=== PATIENT | female | born 1955 | race African-American/Black ===

== ENCOUNTER → 2016-11-02 | Outpatient (CLI) | payer MEDICARE, MEDICAID ==
--- NOTE | 2016-11-02 16:06 | WOMENS IMAGING REPORT ---
EXAM DESCRIPTION: BILAT SCREENING MAMMO W/CAD COMPLETED DATE/TIME: 11/02/2016 10:20 am REASON FOR STUDY: Z12.31, ROUTINE SCREENING MAMMO Z12.31 ENCNTR SCREEN MAMMOGRAM FOR MALIGNANT NEOP LASM OF [place] COMPARISON: 2009 to 2011 TECHNIQUE: Standard craniocaudal and mediolateral oblique views of each breast recorded using digita l acquisition. LIMITATIONS: None. FINDINGS: No masses, calcifications or architectural distortion. No areas of suspicion. Read with the assistance of CAD. .[facility] - R2 Cenova Version 1.3 .[facility] Imaging - R2 Cenova Version 1.3 .[facility] - R2 Cenova Version 2.4 .[facility] - R2 Cenova Version 2.4 .[facility] - R2 Wet Suit Gluer Version 9.2 BREAST DENSITY: c. The breasts are heterogeneously dense, which may obscure small masses. BIRAD: 1 NEGATIVE RECOMMENDATION: ROUTINE SCREENING COMMENT: PATIENT NOTIFIED BY LETTER. The [employer] recommends an annual screening mammogram for women aged 40 years or over. Each patient will receive a reminder prior to the anniversary date of her mammogram. The [employer] (ACR) has developed recommendations for screening MRI of the breast s in certain patient populations, to be used in conjunction with mammography. Breast MRI surveillanc e may be appropriate for women with more than 20% lifetime risk of developing breast cancer as deter mined by genetic testing, significant family history of the disease, or history of mantle radiation f or Hodgkins Disease. ACR Practice Guidelines 2008. TECHNICAL DOCUMENTATION: FINDING NUMBER: (1) ASSESSMENT: (1) JOB ID: [id number] [employer]- All Rights Reserved
== END ==
LOC: WI 09:54
PROVIDERS: ATTEND Family Medicine
DX: Z12.31 Encounter for screening mammogram for malignant neoplasm of breast (principal)
CPT/HCPCS: 77067; G0202

== ENCOUNTER → 2018-01-02 | Outpatient (CLI) | payer MEDICARE, MEDICAID ==
--- NOTE | 2018-01-02 17:43 | WOMENS IMAGING REPORT ---
EXAM DESCRIPTION: 3D SCREENING MAMMO BILAT COMPLETED DATE/TIME: 01/02/2018 11:59 am REASON FOR STUDY: SCREENING MAMMO Z12.31 ENCNTR SCREEN MAMMOGRAM FOR MALIGNANT NEOPLASM OF [place] COMPARISON: Multiple since 2009 TECHNIQUE: Standard craniocaudal and mediolateral oblique views of each breast recorded using digita l acquisition and breast tomosynthesis. LIMITATIONS: None. FINDINGS: No masses, calcifications or architectural distortion. No areas of suspicion. Read with the assistance of CAD. .[facility] - R2 Cenova Version 1.3 .[facility] - R2 Cenova Version 1.3 .[facility] - R2 Cenova Version 2.4 .[facility] - R2 Cenova Version 2.4 [facility] R2 Dealer Sales Manager Version 9.2 IMPRESSION: NORMAL MAMMOGRAM. BIRADS 1. BREAST DENSITY: c. The breasts are heterogeneously dense, which may obscure small masses. BIRAD: 1 NEGATIVE RECOMMENDATION: ROUTINE SCREENING Please continue yearly bilateral screening tomosynthesis in December 2018 given heterogeneously dense ti ssue COMMENT: The patient has been notified of the results by letter per [place] requirements. Additional no tification policies are in place for contacting patient with suspicious or incomplete findings. Quality ID #[id number]: The [employer] recommends an annual screening mammogram for women aged 40 years or over. This facility utilizes a reminder system to ensure that all patients receive reminder letters, and/or direct phone calls for appointments. This includes reminders for routine scr eening mammograms, diagnostic mammograms, or other Breast Imaging Interventions when appropriate. Th is patient will be placed in the appropriate reminder system. The [employer] (ACR) has developed recommendations for screening MRI of the breast s in certain patient populations, to be used in conjunction with mammography. Breast MRI surveillanc e may be appropriate for women with more than 20% lifetime risk of developing breast cancer as deter mined by genetic testing, significant family history of the disease, or history of mantle radiation f or Hodgkins Disease. ACR Practice Guidelines 2008. DBT Technology DBT is a type of tomographic mammography. With conventional mammography, overlapping breast tissue ma y make lesions difficult to detect, even with good compression. DBT uses an x-ray tube that rotates a round the breast, taking images at different angles. These images are then combined to create thin sl ices of the breast that the radiologist can view as a 3D reconstruction. The IgnitionOne unit can perform full-field digital mammograms (2D imaging); or DBT (3D imaging); or both, in a combination mode that quickly performs both the mammogram and the tomosynthesis scan while the breast is still compressed. PQRS 6045F: Fluoroscopic imaging is not utilized for breast tomosynthesis. TECHNICAL DOCUMENTATION: FINDING NUMBER: (1) ASSESSMENT: (1) JOB ID: [id number] [employer]- All Rights Reserved Reading location - IP/workstation name: [facility]
== END ==
LOC: WI 11:38
PROVIDERS: ATTEND Family Medicine
DX: Z12.31 Encounter for screening mammogram for malignant neoplasm of breast (principal)
CPT/HCPCS: 77063; 77067

== ENCOUNTER 2019-04-27 16:08 | Emergency (ER) | payer MEDICARE, MEDICAID ==
[2019-04-27 16:15] VITALS: BP 127/82
--- NOTE | 2019-04-27 16:40 | ER Document Report ---
ED Medical Screen (RME) - General Chief Complaint: Psych Problem Stated Complaint: PSYCH PROBLEM Time Seen by Provider: 04/27/19 16:25 Primary Care Provider: HARDIK VAZQUEZ MD [Primary Care Provider] - Follow up as needed Notes: Patient is a 63-year-old female who presents to the emergency department with a chief complaint of difficulty swallowing and hallucinations. Her sisters are at bedside to provide additional history. The patient had some recent changes in her medications. Patient was taking Thorazine and was switched over to Prolixin. Her doctor then also added Cogentin yesterday. According to her sisters, the patient has had some difficulty swallowing since she had her thyroid medication decreased. Sisters also state that the patient threw her dentures away and is taking frequent baths, which is not her normal. Exam: Anxious. I have greeted and performed a rapid initial assessment of this patient. A comprehensive ED assessment and evaluation of the patient, analysis of test results and completion of medical decision making process will be conducted by an additional ED providers. TRAVEL OUTSIDE OF THE [place] IN LAST 30 DAYS: No - Related Data Allergies/Adverse Reactions: No Known Allergies Allergy (Verified 04/27/19 16:09) Past Medical History - Social History Frequency of alcohol use: None Drug Abuse: None - Past Medical History Cardiac Medical History: Denies: Hx Coronary Artery Disease, Hx Heart Attack, Hx Hypertension Pulmonary Medical History: Denies: Hx Asthma, Hx Bronchitis, Hx COPD, Hx Pneumonia Neurological Medical History: Reports: Hx Seizures - as a child . Denies: Hx Cerebrovascular Accident Renal/ Medical History: Denies: Hx Peritoneal Dialysis Musculoskeltal Medical History: Reports Hx Arthritis Past Surgical History: Reports: Hx Hysterectomy, Hx Thyroid Surgery. Denies: Hx Pacemaker - Immunizations Hx Diphtheria, Pertussis, Tetanus Vaccination: Yes Physical Exam - Vital signs Vitals: Temp Pulse Resp BP Pulse Ox 97.9 F 102 H 20 127/82 H 96 04/27/19 16:14 04/27/19 16:14 04/27/19 16:14 04/27/19 16:14 04/27/19 16:14 Course - Vital Signs Vital signs: Temp Pulse Resp BP Pulse Ox 97.9 F 102 H 20 127/82 H 96 04/27/19 16:14 04/27/19 16:14 04/27/19 16:14 04/27/19 16:14 04/27/19 16:14 Doctor's Discharge - Discharge Referrals: HARDIK VAZQUEZ MD [Primary Care Provider] - Follow up as needed
[2019-04-27 17:17] LABS: ABSOLUTE LYMPHOCYTES (AUTO) 1.9 10^3/uL (0.5-4.7); ABSOLUTE MONOCYTES (AUTO) 0.5 10^3/uL (0.1-1.4); ABSOLUTE NEUT (AUTO) 3.8 10^3/uL (1.7-8.2); BASOPHILS % (AUTO) 0.5 % (0-2); EOSINOPHILS % (AUTO) 0.1 % (0-6); HEMATOCRIT 37.6 % (36.0-47.0); HEMOGLOBIN 12.6 g/dL (12.0-15.5); LYMPHOCYTES % (AUTO) 29.9 % (13-45); MEAN CORPUSCULAR HEMOGLOBIN 28.7 pg (27.0-33.4); MEAN CORPUSCULAR HGB CONC 33.5 g/dL (32.0-36.0); MEAN CORPUSCULAR VOLUME 86 fl (80-97); MONOCYTES % (AUTO) 8.4 % (3-13); PLATELET COUNT 203 10^3/uL (150-450); RED BLOOD COUNT 4.39 10^6/uL (3.72-5.28); RED CELL DISTRIBUTION WIDTH 14.6 % (11.5-14.0); SEGMENTED NEUTROPHILS % (AUTO) 61.1 % (42-78); TOTAL CELLS COUNTED % (AUTO) 100 %; WHITE BLOOD COUNT 6.2 10^3/uL (4.0-10.5)
[2019-04-27 17:20] LABS: APPEARANCE,URINE SLIGHTLY-CLOUDY; BILIRUBIN,URINE NEGATIVE (NEGATIVE); GLUCOSE, URINE NEGATIVE (NEGATIVE); KETONES,URINE TRACE mg/dL (NEGATIVE); LEUKOCYTE ESTERASE,URINE LARGE (NEGATIVE); NITRITE,URINE NEGATIVE (NEGATIVE); PROTEIN,URINE 30 mg/dL (NEGATIVE); URINE SPECIFIC GRAVITY 1.025
[2019-04-27 17:21] LABS: COLOR,URINE DARK YELLOW
[2019-04-27 17:33] LABS: URINE AMPHETAMINES SCREEN NEGATIVE; URINE BARBITURATES SCREEN NEGATIVE; URINE BENZODIAZEPINES SCREEN NEGATIVE; URINE COCAINE SCREEN NEGATIVE; URINE MARIJUANA (THC) SCREEN NEGATIVE; URINE METHADONE SCREEN NEGATIVE; URINE PHENCYCLIDINE SCREEN NEGATIVE
[2019-04-27 17:36] LABS: ACETAMINOPHEN < 10 ug/mL (10-30); ALANINE AMINOTRANSFERASE 36 U/L (9-52); ALBUMIN 4.7 g/dL (3.5-5.0); ALCOHOL < 10 mg/dL (NONE DETECTED); ALKALINE PHOSPHATASE 72 U/L (38-126); ANION GAP 10 (5-19); ASPARTATE AMINO TRANSFERASE 47 U/L (14-36); BILIRUBIN,DIRECT 0.3 mg/dL (0.0-0.4); BILIRUBIN,TOTAL 0.7 mg/dL (0.2-1.3); BLOOD UREA NITROGEN 23 mg/dL (7-20); CALCIUM 10.4 mg/dL (8.4-10.2); CARBON DIOXIDE 30 mmol/L (22-30); CHLORIDE 106 mmol/L (98-107); GLUCOSE 113 mg/dL (75-110); POTASSIUM 4.1 mmol/L (3.6-5.0); SALICYLATE < 1.0 mg/dL (2.0-20.0); TOTAL PROTEIN 8.1 g/dL (6.3-8.2)
--- NOTE | 2019-04-27 17:37 | ER Document Report ---
ED General - General Chief Complaint: Psych Problem Stated Complaint: PSYCH PROBLEM Time Seen by Provider: 04/27/19 16:25 Primary Care Provider: HARDIK VAZQUEZ MD [Primary Care Provider] - Follow up as needed Information source: Patient Notes: HPI: Patient is a very pleasant 63-year-old female with past medical history of schizophrenia. Supposedly according to the patient's family, the Thorazine that patient was taking when off label April 08. She was switched to fluphenazine by her psychiatrist. She was taking 5 mg a day. Given that the patient's symptoms started to recur such as excessive bathing, the patient was seen by her psychiatrist yesterday and they increased the fluphenazine from 5 mg daily to 10 mg twice a day and started the patient also on benztropine. Yesterday was the first dose of this new medication change. Patient also had her levothyroxine change from 85 mcg to 75 mcg in November. Patient and family deny any headache, chest pain, abdominal pain, vomiting, diarrhea, weakness or numbness. No complaints of pain. There was a complaint in triage of some difficulty swallowing. However the patient has been eating food and drinking liquid without difficulty. ROS: See HPI All other review of systems reviewed and otherwise negative Reviewed vital signs and nursing note as charted by RN. PHYSICAL EXAM: CONSTITUTIONAL: Alert and very polite and does follow commands. She does not appear to be in any acute distress HEAD: Normocephalic; atraumatic EYES: PERRL; no nystagmus, sclerae non-icteric ENT: Normal nose; no rhinorrhea; moist mucous membranes; pharynx without lesions noted NECK: Supple without meningismus; non-tender; no cervical lymphadenopathy, no masses CARD: Regular rate and rhythm; no murmurs; symmetric distal pulses RESP: Normal chest excursion without splinting or tachypnea; breath sounds clear and equal bilaterally; no wheezes, no rhonchi, no rales ABD/GI: Normal bowel sounds; non-distended; soft, non-tender; no palpable organomegaly or masses BACK: The back appears normal and is non-tender to palpation EXT: Normal ROM in all joints; non-tender to palpation; no edema SKIN: No acute lesions noted NEURO: CN 2-12 intact; 5/5 bilateral upper and lower extremity strength with sensation intact to light touch PSYCH: The patient's mood and manner are appropriate. Grooming and personal hygiene are appropriate. TRAVEL OUTSIDE OF THE [place] IN LAST 30 DAYS: No - Related Data Allergies/Adverse Reactions: No Known Allergies Allergy (Verified 04/27/19 16:09) Past Medical History - Social History Smoking Status: Never Smoker Frequency of alcohol use: None Drug Abuse: None Family History: Reviewed & Not Pertinent Patient has suicidal ideation: No Patient has homicidal ideation: No - Past Medical History Cardiac Medical History: Denies: Hx Coronary Artery Disease, Hx Heart Attack, Hx Hypertension Pulmonary Medical History: Denies: Hx Asthma, Hx Bronchitis, Hx COPD, Hx Pneumonia Neurological Medical History: Reports: Hx Seizures - as a child . Denies: Hx C erebrovascular Accident Renal/ Medical History: Denies: Hx Peritoneal Dialysis Musculoskeletal Medical History: Reports Hx Arthritis Past Surgical History: Reports: Hx Hysterectomy, Hx Thyroid Surgery. Denies: Hx Pacemaker - Immunizations Hx Diphtheria, Pertussis, Tetanus Vaccination: Yes Hx Pneumococcal Vaccination: 03/02/11 Physical Exam - Vital signs Vitals: Temp Pulse Resp BP Pulse Ox 97.9 F 102 H 20 127/82 H 96 04/27/19 16:14 04/27/19 16:14 04/27/19 16:14 04/27/19 16:14 04/27/19 16:14 Course - Re-evaluation Re-evalutation: 04/27/19 17:35 Given the above history and physical examination, we will check basic labs as well as a TSH level. I do not feel any thyromegaly and do not see any posterior erythema or uvula thickening or deviation. Neck is soft and supple. Patient has been afebrile. Given the patient's psychiatric symptoms not improving, with the change in medications just initiated yesterday, I do believe that the patient may not have had enough time for these medications to take effect. Patient does not appear to be a harm to herself or others. Family is very caring and personally takes care of the patient. Given this information above, I believe that the labs are unremarkable, and the patient is able to eat and drink, I believe the patient can be discharged home with strict return precautions and follow-up with a psychiatrist. Family is very caring and understands these instructions. I would like to give the medications 3 or 4 more days before we determine that they have been insufficient in helping the patient's symptomatology. EKG shows a heart rate of 74, no obvious ST elevation or depression. Extensive artifact given the patient's baseline tremor. 04/27/19 17:45 Labs thus far as recorded. Urine analysis as recorded. Urine culture has been sent. They deny the patient having any dysuria, fevers, vomiting, or diarrhea. Given the above history and physical examination, if the TSH is normal, patient will be discharged home with strict return precautions and follow-up with the primary care physician and psychiatrist. Family is very comfortable with this plan. - Vital Signs Vital signs: Temp Pulse Resp BP Pulse Ox 97.9 F 102 H 20 127/82 H 96 04/27/19 16:14 04/27/19 16:14 04/27/19 16:14 04/27/19 16:14 04/27/19 16:14 - Laboratory Result Diagrams: 04/27/19 16:51 04/27/19 16:51 Laboratory results interpreted by me: 04/27/19 04/27/19 04/27/19 16:51 16:51 16:51 RDW 14.6 H Sodium 146.2 H BUN 23 H Est GFR (Non-Af Amer) 55 L Glucose 113 H Calcium 10.4 H AST 47 H Urine Protein 30 H Urine Ketones TRACE H Urine Blood SMALL H Urine Urobilinogen 2.0 H Ur Leukocyte Esterase LARGE H Salicylates < 1.0 L Acetaminophen < 10 L Discharge - Discharge Clinical Impression: Agitation, New medication added Condition: Fair Disposition: HOME, SELF-CARE Additional Instructions: Come back immediately for any increased agitation, fevers or vomiting, worsening change in mentation, pain to any location, or any other acute problems. Please make sure that you follow-up with your psychiatrist for reassessment as discussed. Referrals: HARDIK VAZQUEZ MD [Primary Care Provider] - Follow up as needed
--- NOTE | 2019-04-27 23:16 | EKG REPORT ---
SEVERITY:- ABNORMAL ECG - SINUS TACHYCARDIA : Confirmed by: Sunitha Durham 27-Apr-2019 23:15:40
== END 2019-04-27 18:18 | disposition home or self-care (01) ==
LOC: ER 16:08
DX: R45.1 Restlessness and agitation (principal); F20.9 Schizophrenia, unspecified; Z79.899 Other long term (current) drug therapy
CPT/HCPCS: 36415; 80053; 80307; 81001; 84443; 85025; 87086; 87088; 87186; 93005; 93010; 99284

== ENCOUNTER 2019-05-19 01:35 | Emergency (ER) | payer MEDICARE, MEDICAID ==
[2019-05-19] MEDS ORDERED: BENZTROPINE MESYLATE 1 MG TABLET PO ONE (02:33)
[2019-05-19] MEDS ORDERED: HALOPERIDOL LACTATE INJ 5 MG/1 ML VIAL IM ONE ×3 (02:33→07:21)
[2019-05-19 02:54] LABS: ALBUMIN 4.5 g/dL (3.5-5.0); ALKALINE PHOSPHATASE 70 U/L (38-126); ANION GAP 9 (5-19); ASPARTATE AMINO TRANSFERASE 36 U/L (14-36); BILIRUBIN,DIRECT 0.3 mg/dL (0.0-0.4); BILIRUBIN,TOTAL 0.7 mg/dL (0.2-1.3); BLOOD UREA NITROGEN 24 mg/dL (7-20); CALCIUM 10.1 mg/dL (8.4-10.2); CARBON DIOXIDE 26 mmol/L (22-30); CHLORIDE 108 mmol/L (98-107); GLUCOSE 113 mg/dL (75-110); POTASSIUM 3.9 mmol/L (3.6-5.0); TOTAL PROTEIN 7.6 g/dL (6.3-8.2)
[2019-05-19 02:57] LABS: ACETAMINOPHEN < 10 ug/mL (10-30); ALCOHOL < 10 mg/dL (NONE DETECTED); SALICYLATE < 1.0 mg/dL (2.0-20.0)
[2019-05-19 03:01] LABS: ABSOLUTE LYMPHOCYTES (AUTO) 1.3 10^3/uL (0.5-4.7); ABSOLUTE MONOCYTES (AUTO) 0.5 10^3/uL (0.1-1.4); EOSINOPHILS % (AUTO) 0.1 % (0-6); RED CELL DISTRIBUTION WIDTH 14.1 % (11.5-14.0); TOTAL CELLS COUNTED % (AUTO) 100 %
--- NOTE | 2019-05-19 03:10 | ER Document Report ---
ED General - General Mode of Arrival: Medic Information source: Relative, Emergency Med Personnel TRAVEL OUTSIDE OF THE [place] IN LAST 30 DAYS: No - HPI Onset: Other Onset/Duration: Persistent, Worse Quality of pain: No pain Associated symptoms: None Exacerbated by: Denies Relieved by: Denies Similar symptoms previously: Yes Recently seen / treated by doctor: No <YAZ NUÑEZ - Last Filed: 05/19/19 08:12> <MERVIN MADRID - Last Filed: 05/19/19 08:30> <GRACIE FLOWERS - Last Filed: 05/20/19 11:43> - General Chief Complaint: Facial Injury Stated Complaint: PSYCH Time Seen by Provider: 05/19/19 01:40 Primary Care Provider: Nilda Fontenot [Outside] - Follow up in 3-5 days [facility] [Outside] - Follow up as needed HARDIK VAZQUEZ MD [Primary Care Provider] - Follow up as needed Notes: This 63-year-old female presents emergency department post fall. Patient has h istory of MR schizophrenia. Her family reports recently patient was prescribed thioridazine but in March they were no longer able to obtain it from the pharmacy. She was then switched to fluphenazine by her provider. Since that time patient has been more agitated. She is constantly asking to have a bath. Reports she feels dirty. The family did contact her mental health provider who adjusted the dosage and she is currently taking fluphenazine milligrams in the morning 10 mg at night. Patient received some type of antibiotic at the end of April for UTI and had a relapse. Sister reports patient again started becoming very agitated wanting to take a bath hanging onto people. She reports the symptoms are increasing. (YAZ NUÑEZ) - Related Data Allergies/Adverse Reactions: No Known Allergies Allergy (Verified 04/27/19 16:09) Past Medical History - General Information source: Relative Cannot obtain history due to: Altered mental status - MR - Social History Smoking Status: Never Smoker Chew tobacco use (# tins/day): No Frequency of alcohol use: None Drug Abuse: None Lives with: Family Family History: Reviewed & Not Pertinent Patient has suicidal ideation: No Patient has homicidal ideation: No - Past Medical History Cardiac Medical History: Denies: Hx Coronary Artery Disease, Hx Heart Attack, Hx Hypertension Pulmonary Medical History: Denies: Hx Asthma, Hx Bronchitis, Hx COPD, Hx Pneumonia Neurological Medical History: Reports: Hx Seizures - as a child . Denies: Hx Cerebrovascular Accident Renal/ Medical History: Denies: Hx Peritoneal Dialysis Musculoskeletal Medical History: Reports Hx Arthritis Psychiatric Medical History: Reports: Hx Schizophrenia Past Surgical History: Reports: Hx Hysterectomy, Hx Thyroid Surgery. Denies: Hx Pacemaker - Immunizations Hx Diphtheria, Pertussis, Tetanus Vaccination: Yes Hx Pneumococcal Vaccination: 03/02/11 <YAZ NUÑEZ - Last Filed: 05/19/19 08:12> Review of Systems <YAZ NUÑEZ - Last Filed: 05/19/19 08:12> - Review of Systems Notes: Review HPI for review of systems., All other systems negative (YAZ NUÑEZ) Physical Exam <YAZ NUÑEZ - Last Filed: 05/19/19 08:12> - Vital signs Vitals: Temp Pulse BP Pulse Ox 98.2 F 104 H 150/78 H 98 05/19/19 01:40 05/19/19 01:40 05/19/19 01:40 05/19/19 01:40 - Notes Notes: PHYSICAL EXAMINATION: GENERAL: alert, nontoxic looking HEAD: Atraumatic, normocephalic. small abrasion to left side forehead EYES: Pupils equal round , extraocular movements intact, sclera anicteric, conjunctiva are normal. ENT: nares patent, Moist mucous membranes. NECK: Normal range of motion, supple without lymphadenopathy LUNGS: CTAB and equal. No wheezes rales or rhonchi. HEART: Regular rate and rhythm without murmurs ABDOMEN: Soft, no tenderness. No guarding, no rebound EXTREMITIES: Normal range of motion, no pitting edema. No cyanosis. NEUROLOGICAL: Cranial nerves grossly intact. Normal sensory/motor exams. PSYCH: Normal mood, normal affect. SKIN: Warm, Dry, normal turgor, no rashes or lesions noted, multiple healing wounds to knee bilaterally (YAZ NUÑEZ) Course - Laboratory Result Diagrams: 05/19/19 01:58 05/19/19 01:58 <YAZ NUÑEZ - Last Filed: 05/19/19 08:12> - Laboratory Result Diagrams: 05/19/19 01:58 05/19/19 01:58 <MERVIN MADRID - Last Filed: 05/19/19 08:30> - Laboratory Result Diagrams: 05/19/19 01:58 05/19/19 01:58 <GRACIE FLOWERS M - Last Filed: 05/20/19 11:43> - Re-evaluation Re-evalutation: 05/19/19 03:12 63-year-old female presents emergency department via EMS for fall and altered mental status. Sisters report patient has been more agitated grabbing them demanding to have a bath even though she just received a bath since her me dications were changed back in March. Sisters report that the pharmacy had a shortage of thioridazine so her provider switched her to fluphenazine 10 mg p.o. twice daily. She reports that she seemed to be getting better but after receiving an antibiotic for a UTI the patient is more agitated demanding a bath grabbing people. Dictation of this chart was performed using voice recognition software; therefore, there may be some unintended grammatical errors. 05/19/19 05:53 Patient is finally resting after a total of 10 mg of Haldol IM and Cogentin 1 mg p.o. Labs unremarkable. Plan for evaluation by mental health in AM. 05/19/19 07:22 Patient agitated has quit saying that she needs a bath but is still ambulating walking around. Nurse reports she is only slept maybe 5 minutes tonight. Si ster at her side waiting for behavioral health. 05/19/19 08:12 flavio from behavioral health in with patient. report given to mervin MACIEL (YAZ NUÑEZ) 05/19/19 08:30 Psych will be keeping pt. Will add thyroid panel. Med rec's given and will discuss and transfer care to our ED provider at 9am as Psych would like to keep her overnight and not discharge. (MERVIN MADRID) - Vital Signs Vital signs: Temp Pulse Resp BP Pulse Ox 98.3 F 85 20 143/79 H 99 05/20/19 04:40 05/20/19 04:40 05/20/19 04:40 05/20/19 04:40 05/20/19 04:40 - Laboratory Laboratory results interpreted by me: 05/19/19 05/19/19 05/19/19 01:58 01:58 03:09 RDW 14.1 H Seg Neutrophils % 79.4 H Chloride 108 H BUN 24 H Glucose 113 H Ammonia Urine Ketones TRACE H Urine Urobilinogen 4.0 H Urine Ascorbic Acid 40 H Salicylates < 1.0 L Acetaminophen < 10 L 05/19/19 10:00 RDW Seg Neutrophils % Chloride BUN Glucose Ammonia < 8.7 L Urine Ketones Urine Urobilinogen Urine Ascorbic Acid Salicylates Acetaminophen Discharge <SAVANNAHYAZ - Last Filed: 05/19/19 08:12> <MERVIN MADRID - Last Filed: 05/19/19 08:30> <KRISTIEALLATANYA Linder - Last Filed: 05/20/19 11:43> - Discharge Clinical Impression: Mental health disorder, History of schizophrenia, History of intellectual disability, Medication course changed, Psychomotor agitation Condition: Stable Disposition: HOME, SELF-CARE Additional Instructions: You have been evaluated by both medical and behavioral health providers while in the emergency department. You have been cleared from both acute medical and psychiatric services. Your increased psychomotor agitation (clapping hands, hitting thighs, walking/pacing), fixation on being dirty and needed a bath and decrease in being redirected are felt to be related to medication change (from Mellaril/Thioridazine to Prolixin/Fluphenazine) that took place 2-3 months ago. You have been restarted back on the Mellaril, provided a prescription for it and made aware of pharmacy that might be able to fill it for you (family reported your pharmacy had it on back order). Follow-Up Plan: You should follow up with your outpatient medication provider at [facility] ([facility]) as a walk-in the next 3-5 days. You should continue with your Day Treatment Program and any other services that help you to manage symptoms and have social interactions. You have been provided the [facility] Mobile Crisis number for crisis, talk therapy and linkage to other services/supports. If your symptoms persist or worsen you should contact your physician immediately, utilize mobile crisis or return to the emergency department. Prescriptions: Clonidine HCl [Clonidine HCl ER] 0.1 mg PO QHS #14 tab.er.12h Buspirone HCl [Buspar 5 mg Tablet] 1 tab PO BID #28 tab Thioridazine HCl [Mellaril 50mg Tablet] 50 mg PO BID #28 tablet Referrals: [facility] [Outside] - Follow up in 3-5 days [facility] [Outside] - Follow up as needed HARDIK VAZQUEZ MD [Primary Care Provider] - Follow up as needed
[2019-05-19 03:18] LABS: ABSOLUTE BASOPHILS # (AUTO) 0.1 10^3/uL (0.0-0.2); ABSOLUTE NEUT (AUTO) 7.2 10^3/uL (1.7-8.2); BASOPHILS % (AUTO) 0.6 % (0-2); HEMOGLOBIN 12.3 g/dL (12.0-15.5); MEAN CORPUSCULAR HEMOGLOBIN 28.7 pg (27.0-33.4); MEAN CORPUSCULAR HGB CONC 33.2 g/dL (32.0-36.0); MEAN CORPUSCULAR VOLUME 86 fl (80-97); MONOCYTES % (AUTO) 5.9 % (3-13); PLATELET COUNT 227 10^3/uL (150-450); RED BLOOD COUNT 4.28 10^6/uL (3.72-5.28); SEGMENTED NEUTROPHILS % (AUTO) 79.4 % (42-78)
[2019-05-19 03:33] LABS: APPEARANCE,URINE CLEAR; BILIRUBIN,URINE NEGATIVE (NEGATIVE); COLOR,URINE YELLOW; GLUCOSE, URINE NEGATIVE (NEGATIVE); KETONES,URINE TRACE mg/dL (NEGATIVE); LEUKOCYTE ESTERASE,URINE NEGATIVE (NEGATIVE); NITRITE,URINE NEGATIVE (NEGATIVE); PROTEIN,URINE NEGATIVE (NEGATIVE); URINE SPECIFIC GRAVITY 1.023
[2019-05-19 03:43] LABS: URINE AMPHETAMINES SCREEN NEGATIVE; URINE BARBITURATES SCREEN NEGATIVE; URINE BENZODIAZEPINES SCREEN NEGATIVE; URINE COCAINE SCREEN NEGATIVE; URINE MARIJUANA (THC) SCREEN NEGATIVE; URINE METHADONE SCREEN NEGATIVE; URINE PHENCYCLIDINE SCREEN NEGATIVE
--- NOTE | 2019-05-19 05:11 | RADIOLOGY REPORT (SQ) ---
EXAM DESCRIPTION: CT HEAD WITHOUT IV CONTRAST COMPLETED DATE/TME: 05/19/2019 01:48 CLINICAL HISTORY: 63 years Female, fall abnormal behavior COMPARISON: None. TECHNIQUE: No contrast. Coronal and sagittal reformat. This exam was performed according to our departmental dose-optimization program, which includes automated exposure control, adjustment of the mA and/or kV according to patient size and/or use of iterative reconstruction technique. Limitation: Streak artifact at the skull base. FINDINGS: No hemorrhage or infarct. No mass, mass effect, or midline shift. Atherosclerosis. Mild parenchymal volume loss. Moderate streak artifact at the skull base. Empty sella variant. Prominence of the left MCA, nonspecific. Brain and extra-axial structures appear otherwise intact. IMPRESSION: No acute findings.
[2019-05-19] MEDS ORDERED: CLONIDINE 0.1 MG/24 HR PATCH.TDWK TD ONE (08:31)
[2019-05-19] MEDS ORDERED: BUSPIRONE HCL 10 MG TABLET PO ONE (08:59)
--- NOTE | 2019-05-19 09:54 | ER Document Report ---
Addendum entered and electronically signed by JUANPABLO GIL LPC 05/20/19 10:57: Discharge - Discharge Clinical Impression: Mental health disorder, History of schizophrenia, History of intellectual disab ility, Medication course changed, Psychomotor agitation Condition: Stable Disposition: HOME, SELF-CARE Additional Instructions: You have been evaluated by both medical and behavioral health providers while in the emergency department. You have been cleared from both acute medical and psychiatric services. Your increased psychomotor agitation (clapping hands, hitting thighs, walking/pacing), fixation on being dirty and needed a bath and decrease in being redirected are felt to be related to medication change (from Mellaril/Thioridazine to Prolixin/Fluphenazine) that took place 2-3 months ago. You have been restarted back on the Mellaril, provided a prescription for it and made aware of pharmacy that might be able to fill it for you (family reported your pharmacy had it on back order). Follow-Up Plan: You should follow up with your outpatient medication provider at [facility] [place] ([facility]) as a walk-in the next 3-5 days. You should continue with your Day Treatment Program and any other services that help you to manage symptoms and have social interactions. You have been provided the [facility] Mobile Crisis number for crisis, talk therapy and linkage to other services/supports. If your symptoms persist or worsen you should contact your physician immediately, utilize mobile crisis or return to the emergency department. Referrals: HARDIK VAZQUEZ MD [Primary Care Provider] - Follow up as needed [facility] [Outside] - Follow up as needed [facility] [Outside] - Follow up in 3-5 days Course - Vital Signs Vital signs: Temp Pulse Resp BP Pulse Ox 98.3 F 85 20 143/79 H 99 05/20/19 04:40 05/20/19 04:40 05/20/19 04:40 05/20/19 04:40 05/20/19 04:40 - Laboratory Result Diagrams: 05/19/19 01:58 05/19/19 01:58 Laboratory results interpreted by me: 05/19/19 05/19/19 05/19/19 01:58 01:58 03:09 RDW 14.1 H Seg Neutrophils % 79.4 H Chloride 108 H BUN 24 H Glucose 113 H Ammonia Urine Ketones TRACE H Urine Urobilinogen 4.0 H Urine Ascorbic Acid 40 H Salicylates < 1.0 L Acetaminophen < 10 L 05/19/19 10:00 RDW Seg Neutrophils % Chloride BUN Glucose Ammonia < 8.7 L Urine Ketones Urine Urobilinogen Urine Ascorbic Acid Salicylates Acetaminophen Physical Exam - Vital signs Vitals: Temp Pulse BP Pulse Ox 98.2 F 104 H 150/78 H 98 05/19/19 01:40 05/19/19 01:40 05/19/19 01:40 05/19/19 01:40 Original Note: Doctor's Note Notes: 05/19/19 09:52 Patient seen and evaluated. She is medically stable and ambulating without difficulty during my exam. Patient is here for increased agitation and schizophrenia. Patient's family members are at bedside. Patient has been ordered her home medications. I did a independent chart review which showed she was taking Mellaril 50 mg twice daily which was prescribed in November, December, and March 2019. This medication will be restarted. Patient's presentation may be related to her change in home medications. She is not suicidal or homicidal. Family members are in agreement with continued monitoring in the emergency room and medication changes. Patient is requiring soft restraints when family is not present because she is attempting to leave the facility. Patient is medically stable.
[2019-05-19] MEDS: LEVOTHYROXINE SODIUM 0.075 MG TABLET PO SCH (10:20)
[2019-05-19] MEDS: THIORIDAZINE HCL 50 MG TABLET PO SCH ×2 (10:21→17:58)
--- NOTE | 2019-05-19 11:40 | EKG REPORT ---
SEVERITY:- BORDERLINE ECG - SINUS RHYTHM BORDERLINE LEFT AXIS DEVIATION LOW VOLTAGE IN FRONTAL LEADS BORDERLINE PROLONGED QT INTERVAL : Confirmed by: Sunitha Durham 19-May-2019 11:38:47
--- NOTE | 2019-05-19 11:50 | PSYCHOLOGICAL NOTE ---
Psych Note - Psych Note Date seen by psych provider: 05/19/19 Time seen by psych provider: 07:34 - Discussion with Attending CANDY PULLER at 0734. Evaluation with patient and sisters/guardians from [phone]. Psych Note: Presenting Problem: Increased agitation, medication change from Thioridazine (Mellaril/Melleril) to Fluphenazine 2.5 months ago after it was on back order at [facility] and other local Pharmacies, Hx Schizophrenia and IDD. Sisters/guardians (have paperwork) reported increased psychomotor agitation (walking, clapping, hitting thighs), fixation on feeling dirty and needing to bathe even after already did, feeling dizzy, grabbing arms and being aggressive when not getting attention (not typical) and not being easily redirected. Observed patient being restless, unable to sit still, hit sister's arm, and not easily redirected. Guardian had [employer] paperwork from a ISP meeting 07/09/18 and she reported a recent meeting took place. Guardian identified patient is involved in a Day Treatment Program. [facility]FS Zaira LIU, involved with patient. She noted patient fell and hit her head last night, has been more agitated and aggressive since medication change. Diagnosis: Schizophrenia by History IDD by Hx Medication recommendations made by the psychiatric medical provider, Dr. Annel MD., includes: Discontinue Fluphenazine 10MG twice a day for psychosis/mood stabilization Add Clonidine 0.1MG patch every 24 hours for calming effect Add Buspar 5MG twice a day for anxiety/calming effect/depression/sleep Add Thioridazine (Mellaril/Melleril) 50MG twice a day for psychosis/mood stabilization Impression/Plan: Recommendation for 24 Hour IVC Petition. Patient has a history of Schizophrenia and IDD, had significant antipsychotic medication change 2.5 months ago due to it being on back order at her's and other local pharmacies and has had an increase in psychomotor agitation and other behavioral changes. Consulted with Dr. Rojo regarding the management and care of patient. ED Physician in agreement with recommendations.
[2019-05-19] MEDS: BUSPIRONE HCL 10 MG TABLET PO SCH ×2 (17:58→19:28)
[2019-05-19] MEDS ORDERED: DIPHENHYDRAMINE HCL 50 MG/ML VIAL IM ONE (22:23)
[2019-05-20 06:49] VITALS: BP 143/79
[2019-05-20] MEDS ORDERED: FAMOTIDINE 20 MG TABLET PO ONE (09:58)
--- NOTE | 2019-05-20 10:31 | ER Document Report ---
Doctor's Note Notes: 05/20/19 10:29 Patient seen and examined. Her sister is present. She is eating breakfast at the time of my evaluation. According to nursing staff she is doing much better on the Mellaril. She seems to be a different person. The patient had no complaints initially, other than stating her knees and face were slightly sore. She then stated she started having some chest pain. She could not describe it for me other than the states she "ate too much." On physical exam this is a pleasant 63-year-old female appears her stated age in no acute distress. Heart is regular rate and rhythm, lungs are clear station related abdomen soft, nontender, normo- active bowel sounds. Skin is warm and dry, calves are nontender. At this point, from a psychiatric standpoint the patient seems to be stable. Unfortunately we have been unable to track down a pharmacy that has her Mellaril in stock. We will continue to look at that. Otherwise patient is medicated with Pepcid, EKG obtained. This chest pain is likely GI in etiology, but will monitor. 05/20/19 11:39 EKG seen and reviewed. Large amount of baseline artifact. Otherwise reveals a sinus mechanism with a rate of 77 bpm. Left axis deviation. No acute ST changes concerning for ischemia or infarction, no significant change in compared to prior study. 05/20/19 11:39 Spoke with Ellen regarding this patient. Patient has new medications added in addition to the antipsychotic she was on at home. We have made every attempt to obtain more Mellaril, instructed sister to continue to contact pharmacies. At this point patient is medically cleared, psychiatrically stable. We will discharge her to home.
[2019-05-20] MEDS: BUSPIRONE HCL 10 MG TABLET PO SCH (10:56)
[2019-05-20] MEDS: THIORIDAZINE HCL 50 MG TABLET PO SCH (10:56)
[2019-05-20] MEDS: LEVOTHYROXINE SODIUM 0.075 MG TABLET PO SCH (10:57)
--- NOTE | 2019-05-20 15:51 | EKG REPORT ---
SEVERITY:- ABNORMAL ECG - ATRIAL FIBRILLATION LEFT AXIS DEVIATION LOW VOLTAGE IN FRONTAL LEADS : Confirmed by: Radha Harris MD 20-May-2019 15:50:48
== END 2019-05-20 12:07 | disposition home or self-care (01) ==
LOC: ER 01:35
DX: F99 Mental disorder, not otherwise specified (principal); R45.1 Restlessness and agitation; F20.9 Schizophrenia, unspecified; S09.93XA Unspecified injury of face, initial encounter; W19.XXXA Unspecified fall, initial encounter; Z79.899 Other long term (current) drug therapy
CPT/HCPCS: 93005 ×2; 96376; 99285; 96374; 96375; 36415; 80307 ×4; 82140; 84443; 85025; 80053; 81001; 70450; 93010 ×2; A9270 ×8; J1200; J1630; J3490

== ENCOUNTER 2019-06-13 10:48 | Emergency (ER) | payer MEDICARE, MEDICAID ==
[2019-06-13] MEDS ORDERED: IBUPROFEN 800 MG TABLET PO ONE (11:06)
--- NOTE | 2019-06-13 11:34 | ER Document Report ---
ED Medical Screen (RME) - General Chief Complaint: Fall Stated Complaint: FALL/LEFT SHOULDER PAIN Time Seen by Provider: 06/13/19 10:59 Primary Care Provider: HARDIK VAZQUEZ MD [Primary Care Provider] - Follow up as needed Mode of Arrival: Wheelchair Information source: Patient, Relative Notes: This 63-year-old female presents with her sisters for complaints of left shoulder pain. They report patient stumbled down a few steps yesterday and fell on her shoulder. Left shoulder is very swollen as well as left upper arm. Patient is tearful with removal of her shirt. Patient has MR. Family has not giving her anything for pain. Motrin ordered, x-ray ordered. I have greeted and performed a rapid initial assessment of this patient. A comprehensive ED assessment and evaluation of the patient, analysis of test results and completion of the medical decision making process will be conducted by additional ED providers. Dictation of this chart was performed using voice recognition software; therefore, there may be some unintended grammatical errors. TRAVEL OUTSIDE OF THE [place] IN LAST 30 DAYS: No - Related Data Allergies/Adverse Reactions: No Known Allergies Allergy (Verified 06/13/19 10:50) Past Medical History - Past Medical History Cardiac Medical History: Denies: Hx Coronary Artery Disease, Hx Heart Attack, Hx Hypertension Pulmonary Medical History: Denies: Hx Asthma, Hx Bronchitis, Hx COPD, Hx Pneumonia Neurological Medical History: Reports: Hx Seizures - as a child . Denies: Hx Cerebrovascular Accident Renal/ Medical History: Denies: Hx Peritoneal Dialysis Musculoskeltal Medical History: Reports Hx Arthritis Psychiatric Medical History: Reports: Hx Schizophrenia Past Surgical History: Reports: Hx Hysterectomy, Hx Thyroid Surgery. Denies: Hx Pacemaker - Immunizations Hx Diphtheria, Pertussis, Tetanus Vaccination: Yes Physical Exam - Vital signs Vitals: Temp Pulse Resp BP Pulse Ox 97.9 F 99 18 112/79 98 06/13/19 10:54 06/13/19 10:54 06/13/19 10:54 06/13/19 10:54 06/13/19 10:54 Course - Vital Signs Vital signs: Temp Pulse Resp BP Pulse Ox 97.9 F 99 18 112/79 98 06/13/19 10:54 06/13/19 10:54 06/13/19 10:54 06/13/19 10:54 06/13/19 10:54 Doctor's Discharge - Discharge Referrals: HARDIK VAZQUEZ MD [Primary Care Provider] - Follow up as needed
--- NOTE | 2019-06-13 11:38 | RADIOLOGY REPORT (SQ) ---
EXAM DESCRIPTION: SHOULDER LEFT 2 OR MORE VIEWS COMPLETED DATE/TIME: 06/13/2019 11:26 am REASON FOR STUDY: pain swelling COMPARISON: None. NUMBER OF VIEWS: Two views. TECHNIQUE: Frontal and lateral images acquired of the left shoulder. LIMITATIONS: None. FINDINGS: MINERALIZATION: Normal. BONES: Fracture of the humeral neck. JOINTS: No dislocation. VISUALIZED LUNGS AND RIBS: No pneumothorax. No rib fracture. SOFT TISSUES: No radiopaque foreign body. OTHER: No other significant finding. IMPRESSION: Humeral neck fracture. The humeral head is not dislocated from the glenoid. TECHNICAL DOCUMENTATION: JOB ID: [id number] [employer]- All Rights Reserved Reading location - IP/workstation name: [email or web address]
[2019-06-13] MEDS ORDERED: HYDROCODONE/ACETAMINOPHEN 5-325 MG TABLET PO ONE (12:57)
--- NOTE | 2019-06-13 13:34 | ER Document Report ---
Entered by MANOHAR DOHERTY SCRIBE 06/13/19 1257 Acting as scribe for:WYATT SAMANIEGO MD ED Fall - General Chief Complaint: Fall Stated Complaint: FALL/LEFT SHOULDER PAIN Time Seen by Provider: 06/13/19 10:59 Primary Care Provider: [facility] [Provider Group] - Follow up in 3-5 days (Call today to schedule an appointment for the first of next week.) HARDIK VAZQUEZ MD [Primary Care Provider] - Follow up as needed Mode of Arrival: Wheelchair Information source: Patient, Relative Notes: 63-year-old female with mental retardation who presents to the emergency department today with complaints of left shoulder pain. Patient states she had a fall yesterday and has had pain since then. Patient has swelling and pain to her left shoulder. Patient is right-hand dominant. TRAVEL OUTSIDE OF THE [place] IN LAST 30 DAYS: No - Related data Allergies/Adverse Reactions: No Known Allergies Allergy (Verified 06/13/19 10:50) Past Medical History - General Information source: Relative - Social History Smoking Status: Never Smoker Cigarette use (# per day): No Family History: Reviewed & Not Pertinent Patient has suicidal ideation: No Patient has homicidal ideation: No Neurological Medical History: Reports: Hx Seizures - as a child Musculoskeletal Medical History: Reports Hx Arthritis Psychiatric Medical History: Reports: Hx Schizophrenia Past Surgical History: Reports: Hx Hysterectomy, Hx Thyroid Surgery - Immunizations Hx Diphtheria, Pertussis, Tetanus Vaccination: Yes Hx Pneumococcal Vaccination: 03/02/11 Review of Systems - Review of Systems Constitutional: No symptoms reported EENT: No symptoms reported Cardiovascular: No symptoms reported Respiratory: No symptoms reported Gastrointestinal: No symptoms reported Genitourinary: No symptoms reported Female Genitourinary: No symptoms reported Musculoskeletal: See HPI, Joint pain - left shoulder Skin: No symptoms reported Hematologic/Lymphatic: No symptoms reported Neurological/Psychological: No symptoms reported -: Yes All other systems reviewed and negative Physical Exam - Vital signs Vitals: Temp Pulse Resp BP Pulse Ox 97.9 F 99 18 112/79 98 06/13/19 10:54 06/13/19 10:54 06/13/19 10:54 06/13/19 10:54 06/13/19 10:54 - Notes Notes: Physical Exam: General: Alert, pleasant, mildly uncomfortable, [id number]. HEENT: Normocephalic. Atraumatic. PERRLA. Extraocular movements intact. Oropharynx clear. Neck: Supple. Respiratory: No respiratory distress. Abdominal: Normal Inspection. No distension. Extremities: Left shoulder is grossly swollen and tender with palpation. Holds left elbow flexed at side with arm across abdomen. Neurological: MR at baseline. Skin: Warm. Dry. Normal color. Course - Re-evaluation Re-evalutation: 06/13/19 13:38 The shoulder immobilizer was placed on the left shoulder by the PCT. The patient reported that the arm felt much better after this immobilizer was placed. The patient has good sensation and capillary refill to the fingers. - Vital Signs Vital signs: Temp Pulse Resp BP Pulse Ox 97.9 F 99 18 112/79 98 06/13/19 10:54 06/13/19 10:54 06/13/19 10:54 06/13/19 10:54 06/13/19 10:54 - Diagnostic Test Radiology reviewed: Image reviewed, Reports reviewed - Humeral neck fracture Discharge - Discharge Clinical Impression: Fx humeral neck Qualifiers: Encounter type: initial encounter Fracture type: closed Laterality: left Qualified Code(s): S42.212A - Unspecified displaced fracture of surgical neck of left humerus, initial encounter for closed fracture Condition: Stable Disposition: HOME, SELF-CARE Additional Instructions: Fracture Proximal Humerus There is a fracture at the upper end of the humerus, near the shoulder joint. Your physician has assessed the fracture's severity and has determined that it will heal well without surgery or "setting." The typical shoulder fracture doesn't need a cast. It's best treated by binding the arm down with a special sling. Ice packs are used to reduce pain and swelling. After early healing has occurred, [id number] exercises are prescribed for the shoulder. Complete healing may take three to six weeks, depending on the age of the patient and the severity of the fracture. Call the doctor or return at once if the arm becomes numb, or if pain or swelling become severe. Use the shoulder immobilizer to help keep the arm still. Use ice packs on the swollen shoulder off and on for the next few days. Take ibuprofen 600 mg every 8 hours for pain management. Take the pain medication as prescribed if needed to sleep, or if the pain gets very severe. Call [facility] for surgery today to schedule an appointment for the first of next week. RETURN TO THE EMERGENCY ROOM IF ANY NEW OR WORSENING SYMPTOMS. Prescriptions: Hydrocodone/Acetaminophen [Lamont 5-325 mg Tablet] 1 tab PO Q4 PRN #12 tablet PRN Reason: Referrals: HARDIK VAZQUEZ MD [Primary Care Provider] - Follow up as needed [facility] [Provider Group] - Follow up in 3-5 days (Call today to schedule an appointment for the first of next week.) Scribe Attestation: 06/13/19 13:28 I personally performed the services described in the documentation, reviewed and edited the documentation which was dictated to the scribe in my presence, and it accurately records my words and actions. I personally performed the services described in the documentation, reviewed and edited the documentation which was dictated to the scribe in my presence, and it accurately records my words and actions.
[2019-06-13 14:06] VITALS: BP 118/72
== END 2019-06-13 13:45 | disposition home or self-care (01) ==
LOC: ER 10:48
DX: S42.212A Unspecified displaced fracture of surgical neck of left humerus, initial encounter for closed fracture (principal); W19.XXXA Unspecified fall, initial encounter; Z90.710 Acquired absence of both cervix and uterus
CPT/HCPCS: 99283; 73030; L3650; A9270 ×2

== ENCOUNTER → 2019-06-19 | Outpatient (CLI) | payer MEDICARE, MEDICAID ==
--- NOTE | 2019-06-19 11:52 | RADIOLOGY REPORT (SQ) ---
EXAM DESCRIPTION: CT LT UPPER EXTREMITY WITHOUT COMPLETED DATE/TIME: 06/19/2019 11:36 am REASON FOR STUDY: (S42.212A)UNSP DISP FX OF SURGICAL NECK OF LEFT HUMERUS, INIT S42.212A UNSP DISP FX OF SURGICAL NECK OF LEFT HUMERUS, INIT COMPARISON: None. EXAM PARAMETERS: TECHNIQUE:Axial imaging performed through the left shoulder with reformatted rodriges l and sagittal imaging windowed for bone and soft tissues. Images saved to PACS. 3D IMAGING: Were 3D images as MIP, SSD, or volume rendering performed at the work station? Yes All CT scanners at this facility use dose modulation, iterative reconstruction, and/or weight based d osing when appropriate to reduce radiation dose to as low as reasonably achievable (ALARA). [facility]: Dose Right [facility]: SureCare [facility]: Dose Right [facility]: Teradose 4D [facility]: Smart Scirra RADIATION DOSE: CT Rad equipment meets quality standard of care and radiation dose reduction techniqu es were employed. CTDIvol: 7.1 mGy. DLP: 161 mGy-cm. mGy. LIMITATIONS: None. FINDINGS: SOFT TISSUES: Soft tissue planes around the shoulder are indistinct secondary to posttraum atic hematoma. BONES: There is a comminuted fracture of the left humeral head/neck. The proximal humerus is displac ed anteriorly by the width of the bone. MINERALIZATION: Normal. OTHER: No other significant finding. IMPRESSION: Comminuted fracture of the left humeral head/neck as described. 3D images are available for viewing. TECHNICAL DOCUMENTATION: JOB ID: [id number] [facility] [id number]: Final reports with documentation of one or more dose reduction techniques (e.g., Automate d exposure control, adjustment of the mA and/or kV according to patient size, use of iterative recons truction technique) 2010 [employer]- All Rights Reserved Reading location - IP/workstation name: [email or web address]
== END ==
LOC: RAD 11:18
PROVIDERS: ATTEND Family Medicine
DX: S42.212A Unspecified displaced fracture of surgical neck of left humerus, initial encounter for closed fracture (principal); X58.XXXA Exposure to other specified factors, initial encounter